=== PATIENT | male | born 1990 | race African-American/Black ===

== ENCOUNTER 2022-05-23 08:47 | Inpatient (IN) ==
[2022-05-23] MEDS ORDERED: ONDANSETRON 4 MG/2 ML VIAL IV STA (09:19)
[2022-05-23] MEDS ORDERED: SODIUM CHLORIDE 0.9% 1,000 ML IV STA (09:19)
[2022-05-23 09:42] LABS: Basophils % 0.4 % (0.0-0.8); Hematocrit 45.5 VOL% (42.0-52.0); Hemoglobin 15.7 GM/DL (14.0-18.0); Immature Granulocytes % 0.5 %; Immature Granulocytes Absolute 0.04 #; Lymphocytes # 2.3 10*3/uL (1.4-4.0); Mean Corpuscular HGB Conc 34.5 GM/DL (32-36); Mean Corpuscular Volume 82.1 FL (87-102); Mean Platelet Volume 9.4 FL (9.6-12.0); Monocytes # 0.9 10*3/uL (0.11-0.8); Monocytes % 11.6 % (1.7-12.7); Neutrophils % 58.5 % (38.7-73.9); Platelet Count 206 T/CUMM (130-400); Red Blood Count 5.54 MC/CUMM (3.8-5.5); Red Cell Distribution Width 13.7 % (9.3-17.3); White Blood Count 7.8 T/CUMM (4-12)
[2022-05-23 10:01] LABS: Albumin 3.3 G/DL (3.4-5.0); Bilirubin,Total 0.8 MG/DL (0.20-1.00); Calcium 9.5 MG/DL (8.5-10.1); Osmolality,Calculated 256.1 MOS/KG (273-304); Potassium 3.6 MMOL/L (3.5-5.1); Total Protein 9.9 G/DL (6.4-8.2)
[2022-05-23 11:02] LABS: Mucus,Urine Occasional /LPF (Occasional); Squamous Epithelial Cell,Urine Occasional /HPF (0-10)
[2022-05-23 11:03] LABS: Glucose,Urine (UA) Negative (Negative); Ketones,Urine 15 mg/dL (Negative); Nitrite,Urine Negative (Negative); Protein,Urine >=300 mg/dL (Negative); Urine Appearance Clear (Clear); Urine Color Yellow (Yellow); Urine pH 6.5 (4.5-8.0)
[2022-05-23 11:04] LABS: Bilirubin,Urine Small mg/dL (Negative); Blood, Urine Moderate mg/dL (Negative)
[2022-05-23] MEDS ORDERED: AMPICILLIN/SULBACTAM 3,000 MG in SODIUM CHLORIDE 0.9% 100 ML IV STA (11:07)
[2022-05-23] MEDS ORDERED: hydrALAZINE 20 MG/1 ML VIAL IV PRN (11:33)
[2022-05-23] MEDS ORDERED: ALBUTEROL/IPRATROPIUM 3 ML NEB RESP TX PRN (11:33)
[2022-05-23] MEDS ORDERED: PROMETHAZINE 25 MG/1 ML VIAL IM PRN (11:33)
[2022-05-23] MEDS: cefTRIAXone 1,000 MG in SODIUM CHLORIDE 0.9% 100 ML IV SCH (13:31)
[2022-05-23] MEDS: DEXTROSE 5% NACL 0.9% 1,000 ML IV SCH ×2 (13:31→23:19)
[2022-05-23] MEDS: ONDANSETRON 4 MG/2 ML VIAL IV PRN ×2 (13:32→18:00)
[2022-05-23] MEDS: metroNIDAZOLE INJ 500 MG/100 ML PREMIX IV SCH ×2 (14:52→20:23)
[2022-05-23] MEDS: PANTOPRAZOLE 40 MG VIAL IV SCH (20:26)
[2022-05-23] MEDS: ACETAMINOPHEN 325 MG TABLET PO PRN (22:00)
[2022-05-24] MEDS: metroNIDAZOLE INJ 500 MG/100 ML PREMIX IV SCH ×3 (04:59→21:38)
[2022-05-24 05:08] LABS: Basophils % 0.4 % (0.0-0.8); Hematocrit 40.2 VOL% (42.0-52.0); Hemoglobin 13.6 GM/DL (14.0-18.0); Immature Granulocytes % 0.4 %; Immature Granulocytes Absolute 0.02 #; Lymphocytes # 1.1 10*3/uL (1.4-4.0); Mean Corpuscular HGB Conc 33.8 GM/DL (32-36); Mean Corpuscular Volume 84.5 FL (87-102); Mean Platelet Volume 9.7 FL (9.6-12.0); Monocytes # 0.5 10*3/uL (0.11-0.8); Neutrophils % 69.2 % (38.7-73.9); Platelet Count 174 T/CUMM (130-400); Red Blood Count 4.76 MC/CUMM (3.8-5.5); Red Cell Distribution Width 14.1 % (9.3-17.3); White Blood Count 5.4 T/CUMM (4-12)
[2022-05-24] MEDS: ONDANSETRON 4 MG/2 ML VIAL IV PRN ×3 (05:09→16:22)
[2022-05-24 05:31] LABS: Blood Urea Nitrogen 8 MG/DL (7-18); Calcium 8.7 MG/DL (8.5-10.1); Carbon Dioxide 28 MMOL/L (21-32); Chloride 99 MMOL/L (98-107); Cholesterol 74 MG/DL (50-200); Glucose 107 MG/DL (74-106); HDL Cholesterol < 10 MG/DL (40-60); Osmolality,Calculated 263.4 MOS/KG (273-304); Potassium 3.8 MMOL/L (3.5-5.1); Sodium 133 MMOL/L (136-145); Triglycerides 163 MG/DL (2-150); VLDL Cholesterol 32.6 MG/DL
[2022-05-24] MEDS: PANTOPRAZOLE 40 MG VIAL IV SCH ×2 (09:16→21:38)
[2022-05-24] MEDS: ACETAMINOPHEN 325 MG TABLET PO PRN (11:40)
[2022-05-24] MEDS: LACTATED RINGERS 1,000 ML IV SCH ×2 (12:00→13:48)
[2022-05-24] MEDS ORDERED: LIDOCAINE 2% 5 ML VIAL ONE (13:20)
[2022-05-24] MEDS ORDERED: propofoL 200 MG/20 ML VIAL IV ONE ×2 (13:20→13:44)
[2022-05-24] MEDS ORDERED: ETOMIDATE 20 MG/10 ML VIAL IV ONE (13:26)
[2022-05-24] MEDS: cefTRIAXone 1,000 MG in SODIUM CHLORIDE 0.9% 100 ML IV SCH (14:06)
[2022-05-24] MEDS: DEXTROSE 5% NACL 0.9% 1,000 ML IV SCH ×3 (16:20→21:54)
[2022-05-25] MEDS: metroNIDAZOLE INJ 500 MG/100 ML PREMIX IV SCH ×3 (04:39→20:51)
[2022-05-25 04:54] LABS: Basophils % 0.4 % (0.0-0.8); Eosinophils % 0.4 % (0.00-10.9); Hematocrit 37.6 VOL% (42.0-52.0); Hemoglobin 12.6 GM/DL (14.0-18.0); Immature Granulocytes % 0.7 %; Immature Granulocytes Absolute 0.04 #; Lymphocytes # 1.2 10*3/uL (1.4-4.0); Lymphocytes % 22.3 % (21.2-54.2); Mean Corpuscular HGB Conc 33.5 GM/DL (32-36); Mean Corpuscular Volume 85.3 FL (87-102); Mean Platelet Volume 9.6 FL (9.6-12.0); Monocytes # 0.5 10*3/uL (0.11-0.8); Monocytes % 8.9 % (1.7-12.7); Neutrophils % 67.3 % (38.7-73.9); Platelet Count 177 T/CUMM (130-400); Red Blood Count 4.41 MC/CUMM (3.8-5.5); Red Cell Distribution Width 14.5 % (9.3-17.3); White Blood Count 5.5 T/CUMM (4-12)
[2022-05-25 05:07] LABS: Calcium 8.3 MG/DL (8.5-10.1); Potassium 3.4 MMOL/L (3.5-5.1)
[2022-05-25] MEDS: DEXTROSE 5% NACL 0.9% 1,000 ML IV SCH (08:00)
[2022-05-25] MEDS ORDERED: BENZONATATE 100 MG CAPSULE PO PRN (08:23)
[2022-05-25] MEDS ORDERED: POTASSIUM CHLORIDE 20 MEQ TABLET PO ONE (09:00)
[2022-05-25] MEDS: PANTOPRAZOLE 40 MG VIAL IV SCH ×2 (09:34→20:47)
[2022-05-25] MEDS: ONDANSETRON 4 MG/2 ML VIAL IV PRN (11:13)
[2022-05-25] MEDS: cefTRIAXone 1,000 MG in SODIUM CHLORIDE 0.9% 100 ML IV SCH (12:44)
[2022-05-25] MEDS: ALBUTEROL/IPRATROPIUM 3 ML NEB RESP TX SCH ×2 (13:14→18:50)
[2022-05-25 18:12] LABS: % CD4 (T Cells) 9 % (32-64); % CD8 (T Cells) 56 % (15-40); 4/8 Ratio 0.2 (>=0.9)
[2022-05-26] MEDS: ALBUTEROL/IPRATROPIUM 3 ML NEB RESP TX SCH ×3 (00:55→12:35)
[2022-05-26] MEDS: ACETAMINOPHEN 325 MG TABLET PO PRN (04:05)
[2022-05-26] MEDS: metroNIDAZOLE INJ 500 MG/100 ML PREMIX IV SCH ×2 (05:59→12:49)
[2022-05-26 06:13] LABS: Basophils % 0.2 % (0.0-0.8); Eosinophils % 0.9 % (0.00-10.9); Hemoglobin 12.5 GM/DL (14.0-18.0); Immature Granulocytes % 0.7 %; Immature Granulocytes Absolute 0.03 #; Lymphocytes % 24.3 % (21.2-54.2); Mean Corpuscular HGB Conc 33.8 GM/DL (32-36); Mean Platelet Volume 9.3 FL (9.6-12.0); Monocytes # 0.4 10*3/uL (0.11-0.8); Monocytes % 9.9 % (1.7-12.7); Platelet Count 240 T/CUMM (130-400); Red Blood Count 4.46 MC/CUMM (3.8-5.5); Red Cell Distribution Width 14.7 % (9.3-17.3); White Blood Count 4.2 T/CUMM (4-12)
[2022-05-26 06:33] LABS: Platelet Estimate Normal
[2022-05-26 06:34] LABS: Calcium 8.6 MG/DL (8.5-10.1); Osmolality,Calculated 263.2 MOS/KG (273-304); Potassium 3.1 MMOL/L (3.5-5.1)
[2022-05-26] MEDS ORDERED: CIPROFLOXACIN 500 MG TABLET PO SCH (09:00)
[2022-05-26] MEDS ORDERED: BACILLUS COAGULANS CAPLET PO SCH (09:00)
[2022-05-26] MEDS: PANTOPRAZOLE 40 MG VIAL IV SCH (09:39)
[2022-05-26] MEDS: ONDANSETRON 4 MG/2 ML VIAL IV PRN (09:48)
[2022-05-26] MEDS ORDERED: methylPREDNISolone SOD SUC 125 MG/2 ML VIAL IV ONE (10:18)
[2022-05-26 11:50] VITALS: BP 128/69
[2022-05-26] MEDS ORDERED: POTASSIUM CHLORIDE 20 MEQ TABLET PO ONE (12:33)
== END 2022-05-26 13:40 | disposition home or self-care (01) | DRG 178 ==
LOC: N.EDINP 08:47 → N.ED 08:47 → N.EDINP 12:45 → N.5E 13:38 → SUATTDRO 05-25 08:22
PROVIDERS: ADMIT Internal Medicine Geriatric Medicine; ATTEND Internal Medicine